=== PATIENT | male | born 1970 | race American Indian/Alaskan Native ===

== ENCOUNTER 2019-08-05 12:45 | Emergency (ER) | payer MEDICAID ==
--- NOTE | 2019-08-05 12:49 | Emergency Department Report ---
ED Abdominal Pain HPI - General Stated Complaint: ABD PAIN Time Seen by Provider: 08/05/19 12:49 Source: patient - History of Present Illness Initial Comments: 48 yo AA male comes to ER from "program" where "I had a witness see me vomit blood." No n/v in ER. Pt states he has hx ulcers. PMH DM g. ulcers bipolar paranoid schizo. hyperthyroid PCP none PSH thyroid Rx thyroid med seroquel klonopin prozac benadryl metformin- off for several months care Eran denies etoh or drugs MD Complaint: abdominal pain -: Sudden, days(s) Location: epigastric Radiation: none Migration to: no migration Severity: moderate Quality: stabbing Consistency: intermittent Improves With: nothing Worsens With: nothing Associated Symptoms: denies other symptoms - Related Data Previous Rx's Medication Instructions Recorded Last Taken Type Famotidine [Pepcid] 40 mg PO DAILY #30 tablet 08/05/19 Unknown Rx ED Review of Systems ROS: Stated complaint: ABD PAIN Other details as noted in HPI Comment: All other systems reviewed and negative ED Past Medical Hx - Past Medical History Previous Medical History?: Yes Hx Diabetes: Yes Hx Psychiatric Treatment: Yes Additional medical history: g ulcers; hyperthyroidism - Surgical History Past Surgical History?: Yes Additional Surgical History: thyroid - Family History Family history: no significant - Social History Smoking Status: Current Every Day Smoker Substance Use Type: None - Medications Home Medications: Home Medications Medication Instructions Recorded Confirmed Last Taken Type Famotidine [Pepcid] 40 mg PO DAILY #30 tablet 08/05/19 Unknown Rx ED Physical Exam - General General appearance: alert - Head Head exam: Present: normocephalic - Eye Eye exam: Present: PERRL - ENT ENT exam: Present: mucous membranes moist - Neck Neck exam: Present: normal inspection - Respiratory Respiratory exam: Present: normal lung sounds bilaterally - Cardiovascular Cardiovascular Exam: Present: regular rate - GI/Abdominal GI/Abdominal exam: Present: soft, normal bowel sounds. Absent: distended, tenderness, guarding, rebound, rigid, diminished bowel sounds, hyperactive bowel sounds, hypoactive bowel sounds, organomegaly, mass, bruit, pulsatile mass, hernia - Rectal Rectal exam: Present: deferred - Extremities Exam Extremities exam: Present: normal inspection, full ROM - Back Exam Back exam: Present: normal inspection, full ROM - Neurological Exam Neurological exam: Present: alert, oriented X3 - Psychiatric Psychiatric exam: Present: normal affect, normal mood - Skin Skin exam: Present: warm, dry ED Course Vital Signs 08/05/19 08/05/19 08/05/19 12:52 12:57 13:00 Temperature 98.3 F Pulse Rate 88 Respiratory 18 18 Rate Blood Pressure 150/85 106/78 O2 Sat by Pulse 100 96 96 Oximetry 08/05/19 08/05/19 14:00 15:00 Temperature Pulse Rate Respiratory 18 15 Rate Blood Pressure 122/81 114/77 O2 Sat by Pulse 94 96 Oximetry - Reevaluation(s) Reevaluation #1: 08/05/19 15:11 no vomiting in ER hgb stable ED Medical Decision Making - Lab Data Result diagrams: 08/05/19 12:59 08/05/19 12:59 - Radiology Data Radiology results: report reviewed, image reviewed - Medical Decision Making Labs 08/05/19 08/05/19 08/05/19 12:59 12:59 12:59 WBC 8.2 RBC 4.64 Hgb 14.5 Hct 41.5 MCV 90 MCH 31 MCHC 35 H RDW 15.0 Plt Count 211 Lymph % (Auto) 22.0 [place] % (Auto) 2.8 Eos % (Auto) 1.2 Baso % (Auto) 0.9 Lymph # 1.8 [place] # 0.2 Eos # 0.1 Baso # 0.1 Seg Neutrophils % 73.1 H Seg Neutrophils # 6.0 PT 12.7 INR 0.98 APTT 29.9 Sodium 139 Potassium 4.2 Chloride 100.3 Carbon Dioxide 22 Anion Gap 21 BUN 10 Creatinine 0.9 Estimated GFR > 60 BUN/Creatinine Ratio 11 Glucose 105 H Calcium 9.4 Total Bilirubin 0.30 AST 21 ALT 18 Alkaline Phosphatase 82 Total Protein 7.6 Albumin 4.4 Albumin/Globulin Ratio 1.4 Lipase 24 Urine Color Urine Turbidity Urine pH Ur Specific [place] Urine Protein Urine Glucose (UA) Urine Ketones Urine Blood Urine Nitrite Urine Bilirubin Urine Urobilinogen Ur Leukocyte Esterase Urine WBC (Auto) Urine RBC (Auto) Urine Mucus 08/05/19 Unknown WBC RBC Hgb Hct MCV MCH MCHC RDW Plt Count Lymph % (Auto) [place] % (Auto) Eos % (Auto) Baso % (Auto) Lymph # [place] # Eos # Baso # Seg Neutrophils % Seg Neutrophils # PT INR APTT Sodium Potassium Chloride Carbon Dioxide Anion Gap BUN Creatinine Estimated GFR BUN/Creatinine Ratio Glucose Calcium Total Bilirubin AST ALT Alkaline Phosphatase Total Protein Albumin Albumin/Globulin Ratio Lipase Urine Color Yellow Urine Turbidity Clear Urine pH 6.0 Ur Specific [place] 1.013 Urine Protein <15 mg/dl Urine Glucose (UA) Neg Urine Ketones Neg Urine Blood Neg Urine Nitrite Neg Urine Bilirubin Neg Urine Urobilinogen < 2.0 Ur Leukocyte Esterase Neg Urine WBC (Auto) < 1.0 Urine RBC (Auto) 1.0 Urine Mucus Few Vital Signs 08/05/19 08/05/19 08/05/19 12:52 12:57 13:00 Temperature 98.3 F Pulse Rate 88 Respiratory 18 18 Rate Blood Pressure 150/85 106/78 O2 Sat by Pulse 100 96 96 Oximetry vss no tachycardia no hypotension taking po xray noted mg citrate given on follow up pt states "I thought I was constipated." He states "I stay that way. Pt in ER over 3 hours and has had no vomiting. dc home with GI follow up. Pt verbalizes understanding of dc instructions. - Differential Diagnosis ro anemia from UGI bleed Critical care attestation.: If time is entered above; I have spent that time in minutes in the direct care of this critically ill patient, excluding procedure time. ED Disposition Clinical Impression: Abdominal pain, Constipation Disposition: DC-01 TO HOME OR SELFCARE Is pt being admited?: No Does the pt Need Aspirin: No Condition: Stable Instructions: Constipation (ED), Diet for Ulcers and Gastritis (ED) Additional Instructions: AVOID ALCOHOL AND SPICY FOOD high fiber diet med as ordered today OVER THE COUNTER NEEDED COLACE OR DULCOLOX SUPPOSITORY FOR CONSTIPATION AVOID NARCOTICS CONTINUE HOME MEDS HYDRATE WELL WITH WATER FOLLOW UP WITH PCP AND GI MD REFERRALS BELOW Prescriptions: Famotidine [Pepcid] 40 mg PO DAILY #30 tablet Referrals: PRIMARY CARE, [Primary Care Provider] - 3-5 Days DOUGLAS WILKINSON MD [Staff Physician] - 3-5 Days REJI MAJANO MD [Staff Physician] - 3-5 Days ASHLY DAVENPORT MD [Staff Physician] - 3-5 Days [facility] [Outside] - 3-5 Days Time of Disposition: 14:13
[2019-08-05] MEDS ORDERED: LIDOCAINE VISCOUS 2% PO ONE (12:55)
[2019-08-05] MEDS ORDERED: ALUM-MAG HYDROX-SIMETH 200-200-20MG/5ML PO ONE (12:55)
[2019-08-05] MEDS ORDERED: PROTONIX IV ONE (12:55)
[2019-08-05] MEDS ORDERED: NACL 0.9% 1000 ML 1,000 ML IV ONE (12:55)
[2019-08-05 13:24] LABS: Basophils # (Auto) 0.1 K/mm3 (0.0-0.1); Basophils % (Auto) 0.9 % (0.0-1.8); Eosinophils # (Auto) 0.1 K/mm3 (0.0-0.4); Eosinophils % (Auto) 1.2 % (0.0-4.3); Hematocrit 41.5 % (35.5-45.6); Hemoglobin 14.5 gm/dl (11.8-15.2); Lymphocytes # (Auto) 1.8 K/mm3 (1.2-5.4); Mean Corpuscular HGB Conc 35 % (32-34); Mean Corpuscular Volume 90 fl (84-94); Monocytes # (Auto) 0.2 K/mm3 (0.0-0.8); Monocytes % (Auto) 2.8 % (0.0-7.3); Platelet Count 211 K/mm3 (140-440); Red Blood Count 4.64 M/mm3 (3.65-5.03)
[2019-08-05 13:34] LABS: INR 0.98 (0.87-1.13)
[2019-08-05 13:35] LABS: Partial Thromboplastin Time 29.9 Sec. (24.2-36.6)
[2019-08-05 13:48] LABS: Alanine Aminotransferase 18 units/L (7-56); Albumin 4.4 g/dL (3.9-5); BUN/Creatinine Ratio 11; Blood Urea Nitrogen 10 mg/dL (9-20); Calcium 9.4 mg/dL (8.4-10.2); Hemolysis Index 6
[2019-08-05 13:53] LABS: Bilirubin,Urine NEG (Negative); Blood,Urine NEG (Negative); Color,Urine Yellow (Yellow); Mucus,Urine FEW /HPF; Protein,Urine <15 mg/dL mg/dL (Negative); Urobilinogen,Urine < 2.0 mg/dL (<2.0); WBC,Urine < 1.0 /HPF (0.0-6.0)
--- NOTE | 2019-08-05 15:06 | XRay Report ---
ABDOMINAL SERIES WITH CHEST X-RAY ONE VIEW HISTORY: Epigastric pain FINDINGS: Single view of the chest is normal. Supine and upright views the abdomen demonstrate mild t o moderate stool in the proximal colon. No evidence for obstruction, fluid levels or free air. IMPRESSION: No acute process. Mild fecal retention. Signer Name: Jonny Kinney Jr, MD Signed: 08/05/2019 3:01 PM Workstation Name: [id number]
[2019-08-05] MEDS ORDERED: CITRATE OF MAGNESIA PO ONE (15:07)
[2019-08-05 15:44] VITALS: BP 114/77
== END 2019-08-05 16:07 | disposition home or self-care (01) ==
LOC: ED 12:45
DX: K59.00 Constipation, unspecified (principal); R11.10 Vomiting, unspecified; F31.9 Bipolar disorder, unspecified; F20.0 Paranoid schizophrenia; E11.9 Type 2 diabetes mellitus without complications; F17.200 Nicotine dependence, unspecified, uncomplicated
CPT/HCPCS: 36415; 74022; 80053; 81001; 83690; 85025; 85610; 85730; 96361; 96374; 99284; C9113; J7030

== ENCOUNTER 2019-10-28 17:14 | Emergency (ER) | payer MEDICAID ==
[2019-10-28 18:26] VITALS: BP 114/72
--- NOTE | 2019-10-28 18:31 | Event Note ---
ED Screening Note ED Screening Note: PMH HYPERTHYROID PSYCH MEDS DM CO R EAR PAIN AND FEELS BUG IN IT This initial assessment/diagnostic orders/clinical plan/treatment(s) is/are subject to change based on patients health status, clinical progression and re- assessment by fellow clinical providers in the ED. Further treatment and workup at subsequent clinical providers discretion. Patient/guardian urged not to elope from the ED as their condition may be serious if not clinically assessed and managed. Initial orders include: ACC FOR EXAM
[2019-10-28] MEDS ORDERED: DOCUSATE SODIUM 100 MG/10 ML ORAL LIQD PO ONE (18:34)
[2019-10-28] MEDS ORDERED: DOCUSATE SODIUM 100 MG/10 ML ORAL LIQD ONE (22:18)
--- NOTE | 2019-10-28 22:37 | Emergency Department Report ---
ED ENT HPI - General Chief complaint: Earache Stated complaint: R EAR PAIN X3WKS Time Seen by Provider: 10/28/19 18:30 Source: patient Mode of arrival: Ambulatory Limitations: No Limitations - History of Present Illness Initial comments: Patient is a 49-year-old male that presents emergency room with complaints of right ear pain 3 weeks. Patient states his pain is worsening. Patient states his pain is a 6 out of 10. Patient states feels fullness in his ear as well. Patient states the pain is nonradiating. Patient states the pain is better with rest and worse with touching his external ear. MD complaint: ear pain -: Sudden Location: R ear Severity: moderate Severity scale (0 -10): 6 Quality: stabbing, aching Consistency: constant Improves with: rest Worsens with: other Associated Symptoms: denies: fever, cough, gum swelling, toothache, pain with swallowing, sore throat, tinnitus, hearing loss, discharge from ear, rhinorrhea - Related Data Previous Rx's Medication Instructions Recorded Last Taken Type Famotidine [Pepcid] 40 mg PO DAILY #30 tablet 08/05/19 Unknown Rx Ciprofloxacin HCl/Dexameth 2 drop OD BID 7 Days #7.5 ml 10/28/19 Unknown Rx [Ciprodex Otic Suspension] Allergies Allergy/AdvReac Type Severity Reaction Status Date / Time No Known Allergies Allergy Unverified 10/28/19 17:40 ED Dental HPI - General Chief complaint: Earache Stated complaint: R EAR PAIN X3WKS Time Seen by Provider: 10/28/19 18:30 Source: patient Mode of arrival: Ambulatory Limitations: No Limitations - Related Data Previous Rx's Medication Instructions Recorded Last Taken Type Famotidine [Pepcid] 40 mg PO DAILY #30 tablet 08/05/19 Unknown Rx Ciprofloxacin HCl/Dexameth 2 drop OD BID 7 Days #7.5 ml 10/28/19 Unknown Rx [Ciprodex Otic Suspension] Allergies Allergy/AdvReac Type Severity Reaction Status Date / Time No Known Allergies Allergy Unverified 10/28/19 17:40 ED Review of Systems ROS: Stated complaint: R EAR PAIN X3WKS Other details as noted in HPI Constitutional: denies: chills, fever Eyes: denies: eye pain, eye discharge, vision change ENT: ear pain. denies: throat pain Respiratory: denies: cough, shortness of breath, wheezing Cardiovascular: denies: chest pain, palpitations Endocrine: no symptoms reported Gastrointestinal: denies: abdominal pain, nausea, diarrhea Genitourinary: denies: urgency, dysuria Musculoskeletal: denies: back pain, joint swelling, arthralgia Skin: denies: rash, lesions Neurological: denies: headache, weakness, paresthesias Psychiatric: denies: anxiety, depression Hematological/Lymphatic: denies: easy bleeding, easy bruising ED Past Medical Hx - Past Medical History Previous Medical History?: Yes Hx Diabetes: Yes Hx Psychiatric Treatment: Yes Hx Asthma: Yes Additional medical history: g ulcers; hyperthyroidism - Surgical History Past Surgical History?: Yes Additional Surgical History: thyroid - Family History Family history: no significant - Social History Smoking Status: Current Some Day Smoker Substance Use Type: None - Medications Home Medications: Home Medications Medication Instructions Recorded Confirmed Last Taken Type Famotidine [Pepcid] 40 mg PO DAILY #30 tablet 08/05/19 Unknown Rx Ciprofloxacin HCl/Dexameth 2 drop OD BID 7 Days #7.5 ml 10/28/19 Unknown Rx [Ciprodex Otic Suspension] ED Physical Exam - General Limitations: No Limitations General appearance: alert, in no apparent distress - Head Head exam: Present: atraumatic, normocephalic - Eye Eye exam: Present: normal appearance - ENT ENT exam: Present: mucous membranes moist - Expanded ENT Exam Expanded TM/Canal exam: Canal Discharge: Right TM, Canal Tenderness: Right TM - Neck Neck exam: Present: normal inspection - Respiratory Respiratory exam: Present: normal lung sounds bilaterally. Absent: respiratory distress - Cardiovascular Cardiovascular Exam: Present: regular rate, normal rhythm. Absent: systolic murmur, diastolic murmur, rubs, gallop - GI/Abdominal GI/Abdominal exam: Present: soft, normal bowel sounds - Rectal Rectal exam: Present: deferred - Extremities Exam Extremities exam: Present: normal inspection - Back Exam Back exam: Present: normal inspection - Neurological Exam Neurological exam: Present: alert, oriented X3 - Psychiatric Psychiatric exam: Present: normal affect, normal mood - Skin Skin exam: Present: warm, dry, intact, normal color. Absent: rash ED Course Vital Signs 10/28/19 10/28/19 17:40 18:26 Temperature 98.2 F Pulse Rate 92 H 92 H Blood Pressure 114/72 114/72 O2 Sat by Pulse 99 99 Oximetry - Reevaluation(s) Reevaluation #1: I discussed all clinical findings with patient. I discussed plan of care with patient. Patient agrees with plan of care. Patient is stable for discharge. Patient will be discharged home. Patient given discharge instructions. Patient voiced understanding of discharge instructions. 10/28/19 22:34 ED Medical Decision Making - Medical Decision Making Patient is a 49-year-old male that presents emergency room with ear pain for 3 weeks. Patient found to have a purulent otitis externa. Patient will be given antibiotic eardrops. Patient stable for discharge. Patient discharged home. Patient require any further investigation ER. - Differential Diagnosis otitis media, ear pain, otitis media. Otitis externa. Foreign-body Critical care attestation.: If time is entered above; I have spent that time in minutes in the direct care of this critically ill patient, excluding procedure time. ED Disposition Clinical Impression: Ear pain, left Otitis externa Qualifiers: Otitis externa type: unspecified type Chronicity: acute Laterality: right Qualified Code(s): H60.501 - Unspecified acute noninfective otitis externa, right ear Disposition: - TO HOME OR SELFCARE Is pt being admited?: No Does the pt Need Aspirin: No Condition: Stable Instructions: Otitis Externa (ED) Additional Instructions: Patient to follow-up with primary care in 2-3 days. Patient to follow-up with ENT in 2-3 days. Patient to return to ER if condition worsens. Patient to rest. Patient to increase water. Patient to take meds as directed. Patient's take Tylenol or ibuprofen when necessary for pain. Prescriptions: Ciprofloxacin HCl/Dexameth [Ciprodex Otic Suspension] 2 drop OD BID 7 Days #7.5 ml Referrals: PRIMARY CARE, [Primary Care Provider] - 2-3 Days Time of Disposition: 22:37
== END 2019-10-28 23:06 | disposition home or self-care (01) ==
LOC: ED 17:14
DX: H60.91 Unspecified otitis externa, right ear (principal); E11.9 Type 2 diabetes mellitus without complications; J45.909 Unspecified asthma, uncomplicated; E03.9 Hypothyroidism, unspecified; F17.200 Nicotine dependence, unspecified, uncomplicated; Z98.890 Other specified postprocedural states; Z79.899 Other long term (current) drug therapy
CPT/HCPCS: 99282